=== PATIENT | female | born 1965 | race African-American/Black ===

== ENCOUNTER 2017-05-26 23:20 | Emergency (ER) | payer SELFPAY ==
[2017-05-27] MEDS ORDERED: HYDROCODONE/ACETAMINOPHEN 5-325 MG (6 TAB/ER DISP) PO PRN (00:15)
--- NOTE | 2017-05-27 00:15 | ER Document Report ---
HPI - HPI Patient complains to provider of: right arm pain Pain Level: 2 Context: Patient is a 51-year-old female who comes emergency department for chief complaint of pain in her right arm/orbit area and over her outer arm just past the elbow. She states that she started noticing pain with movement, she states several days of the past and the pain is still there with movement and she became concerned. She denies any injury, chest pain, shortness of breath, fever , swelling. She already takes ibuprofen for her back. She has diabetes and hypertension, is not on a blood thinner. - REPRODUCTIVE LMP: na Past Medical History - General Information source: Patient - Social History Smoking Status: Never Smoker Frequency of alcohol use: None Drug Abuse: None Lives with: Family Family History: Reviewed & Not Pertinent - Past Medical History Cardiac Medical History: Reports: Hx Hypertension Endocrine Medical History: Reports: Hx Diabetes Mellitus Type 2 Psychiatric Medical History: Reports: Hx Depression - Immunizations Hx Diphtheria, Pertussis, Tetanus Vaccination: Yes Vertical Provider Document - CONSTITUTIONAL General Appearance: WD/WN, No Apparent Distress - INFECTION CONTROL TRAVEL OUTSIDE OF THE [place] IN LAST 30 DAYS: No - HEENT HEENT: Atraumatic, Normocephalic - NECK Neck: Normal Inspection - RESPIRATORY Respiratory: Breath Sounds Normal, No Respiratory Distress. negative: Chest Non -Tender - Patient tender over the right lateral pectoralis muscle extending into the axillary area, reproducible with raising the arm over her head. No erythema, swelling, crepitus, normal chest exam otherwise. O2 Sat by Pulse Oximetry: 97 - CARDIOVASCULAR Cardiovascular: Regular Rate, Regular Rhythm - GI/ABDOMEN Gastrointestinal: Abdomen Soft, Abdomen Non-Tender - BACK Back: Normal Inspection - MUSCULOSKELETAL/EXTREMETIES Musculoskeletal/Extremeties: Tender - Patient's tender over the lateral epicondyle, pain with straightening and rotation of the arm, no swelling, erythema, full range of motion of the elbow, normal distal neurovascular exam and hand exam. Normal upper arm exam as well. Course - Re-evaluation Re-evalutation: Patient asymptomatic unless she has movement, movement causes pain, these movements are specific, palpation reproduces pain. Consistent with right lateral pectoralis muscle pain, lateral epicondylitis. No shortness of breath, chest pain, nausea or vomiting, or concerning symptoms suggesting ACS, infection , or neurological abnormality. Discussed with patient, discussed treatment, follow-up, return precautions. Patient states satisfaction and agreement. - Vital Signs Vital signs: Temp Pulse Resp BP Pulse Ox 97.8 F 78 182/92 H 97 05/26/17 23:33 05/26/17 23:33 05/26/17 23:33 05/26/17 23:33 Discharge - Discharge Clinical Impression: Right arm pain Strain of right pectoralis muscle Qualifiers: Encounter type: initial encounter Qualified Code(s): S29.011A - Strain of muscle and tendon of front wall of thorax, initial encounter Disposition: HOME, SELF-CARE Additional Instructions: Exam is consistent with strain of the right pectoralis muscle and also lateral epicondylitis. Continue ibuprofen, apply heat to your chest/armpit area, apply ice to the elbow area, take the muscle relaxer as prescribed, apply the patches over the painful areas if needed. Rest and avoid lifting/twisting. This should resolve with time. Follow-up with primary care. Return for any concerning or worsening symptoms including difficulty breathing, pain in your chest, swelling or redness of the areas, or any other concerning symptoms. Prescriptions: Lidocaine [Lidoderm 5% (700 mg) Transdermal Patch] 1 patch TP DAILY #30 adh..patch Methocarbamol [Robaxin 500 mg Tablet] 500 mg PO QID PRN #20 tablet PRN Reason:
[2017-05-27 00:43] VITALS: BP 169/87
== END 2017-05-27 00:42 | disposition home or self-care (01) ==
LOC: ER 23:20
DX: M79.601 Pain in right arm (principal); S29.011A Strain of muscle and tendon of front wall of thorax, initial encounter; X58.XXXA Exposure to other specified factors, initial encounter; E11.9 Type 2 diabetes mellitus without complications; I10 Essential (primary) hypertension
CPT/HCPCS: 99283

== ENCOUNTER 2017-07-24 15:49 | Emergency (ER) | payer SELFPAY ==
[2017-07-24] MEDS ORDERED: CLONIDINE HCL 0.1 MG TABLET PO ONE (16:11)
[2017-07-24] MEDS ORDERED: ASPIRIN 81 MG TABLET, CHEWABLE PO ONE (16:11)
--- NOTE | 2017-07-24 16:12 | ER Document Report ---
ED Medical Screen (RME) - General Chief Complaint: High blood pressure/ chest tightness Stated Complaint: BLOOD PRESSURE ISSUE Time Seen by Provider: 07/24/17 16:11 TRAVEL OUTSIDE OF THE [place] IN LAST 30 DAYS: No - HPI Notes: 07/24/17 16:12 Coming in for elevated blood pressure and chest tightness. - Related Data Allergies/Adverse Reactions: No Known Allergies Allergy (Verified 03/06/13 16:02) Past Medical History - Past Medical History Cardiac Medical History: Reports: Hx Hypertension Endocrine Medical History: Reports: Hx Diabetes Mellitus Type 2 Psychiatric Medical History: Reports: Hx Depression - Immunizations Hx Diphtheria, Pertussis, Tetanus Vaccination: Yes Review of Systems - Review of Systems Constitutional: Other - Elevated blood pressure chest tightness Physical Exam - Vital signs Vitals: Temp Pulse Resp BP Pulse Ox 98.1 F 58 L 18 216/111 H 97 07/24/17 15:53 07/24/17 15:53 07/24/17 15:53 07/24/17 15:53 07/24/17 15:53 - Respiratory Respiratory status: No respiratory distress Chest status: Nontender Breath sounds: Normal Chest palpation: Normal Course - Vital Signs Vital signs: Temp Pulse Resp BP Pulse Ox 98.1 F 58 L 18 216/111 H 97 07/24/17 15:53 07/24/17 15:53 07/24/17 15:53 07/24/17 15:53 07/24/17 15:53
[2017-07-24 16:38] LABS: ABSOLUTE LYMPHOCYTES (AUTO) 1.8 10^3/uL (0.5-4.7); ABSOLUTE MONOCYTES (AUTO) 0.2 10^3/uL (0.1-1.4); ABSOLUTE NEUT (AUTO) 1.3 10^3/uL (1.7-8.2); BASOPHILS % (AUTO) 0.3 % (0-2); EOSINOPHILS % (AUTO) 0.5 % (0-6); HEMATOCRIT 39.9 % (36.0-47.0); HEMOGLOBIN 13.6 g/dL (12.0-15.5); LYMPHOCYTES % (AUTO) 53.8 % (13-45); MEAN CORPUSCULAR HEMOGLOBIN 27.6 pg (27.0-33.4); MEAN CORPUSCULAR VOLUME 81 fl (80-97); PLATELET COUNT 163 10^3/uL (150-450); RED BLOOD COUNT 4.91 10^6/uL (3.72-5.28); RED CELL DISTRIBUTION WIDTH 13.6 % (11.5-14.0); SEGMENTED NEUTROPHILS % (AUTO) 38.4 % (42-78); TOTAL CELLS COUNTED % (AUTO) 100 %; WHITE BLOOD COUNT 3.4 10^3/uL (4.0-10.5)
--- NOTE | 2017-07-24 16:50 | RADIOLOGY REPORT (SQ) ---
EXAM DESCRIPTION: CHEST 2 VIEWS COMPLETED DATE/TIME: 07/24/2017 4:35 pm REASON FOR STUDY: cp COMPARISON: None. EXAM PARAMETERS: NUMBER OF VIEWS: two views TECHNIQUE: Digital Frontal and Lateral radiographic views of the chest acquired. RADIATION DOSE: NA LIMITATIONS: none FINDINGS: LUNGS AND PLEURA: No opacities, masses or pneumothorax. No pleural effusion. MEDIASTINUM AND HILAR STRUCTURES: No masses or contour abnormalities. HEART AND VASCULAR STRUCTURES: Heart normal size. No evidence for failure. BONES: No acute findings. HARDWARE: None in the chest. OTHER: No other significant finding. IMPRESSION: NO ACUTE RADIOGRAPHIC FINDING IN THE CHEST. TECHNICAL DOCUMENTATION: JOB ID: [id number] [employer]- All Rights Reserved Reading location - IP/workstation name: [facility], [facility]
--- NOTE | 2017-07-24 16:58 | ER Document Report ---
ED Blood Pressure Problem - General Chief Complaint: High blood pressure/ chest tightness Stated Complaint: BLOOD PRESSURE ISSUE Time Seen by Provider: 07/24/17 16:11 Mode of Arrival: Ambulatory Information source: Patient TRAVEL OUTSIDE OF THE [place] IN LAST 30 DAYS: No - HPI Patient complains to provider of: High blood pressure Onset: This morning Onset/Duration: Gradual Quality of pain: Other - VAGUE "TIGHTNESS" IN CHEST Severity: Mild Problem is: New problem Pt currently taking medication for problem: Yes - SAYS SHE'S BEEN COMPLIANT Associated symptoms: Chest pain - VERY SLIGHT, Headache, Other - DISCOMFORT IN NOSE. denies: Lightheaded, Nausea Similar symptoms previously: Yes Recently seen / treated by doctor: No - Related Data Allergies/Adverse Reactions: No Known Allergies Allergy (Verified 07/24/17 16:14) Past Medical History - General Information source: Patient - Social History Smoking Status: Never Smoker Cigarette use (# per day): No Chew tobacco use (# tins/day): No Frequency of alcohol use: None Drug Abuse: None Lives with: Spouse/Significant other Family History: Reviewed & Not Pertinent Patient has suicidal ideation: No Patient has homicidal ideation: No - Past Medical History Cardiac Medical History: Reports: Hx Hypertension Pulmonary Medical History: Reports: None EENT Medical History: Reports: None Neurological Medical History: Reports: None Endocrine Medical History: Reports: Hx Diabetes Mellitus Type 2 Renal/ Medical History: Reports: None. Denies: Hx Peritoneal Dialysis Malignancy Medical History: Reports: None GI Medical History: Reports: None Musculoskeltal Medical History: Reports None Psychiatric Medical History: Reports: Hx Depression Past Surgical History: Reports: Hx Cholecystectomy, Hx Tubal Ligation - Immunizations Hx Diphtheria, Pertussis, Tetanus Vaccination: Yes Review of Systems - Review of Systems Constitutional: No symptoms reported EENT: See HPI Cardiovascular: See HPI Respiratory: No symptoms reported Gastrointestinal: No symptoms reported Genitourinary: No symptoms reported Musculoskeletal: No symptoms reported Skin: No symptoms reported Neurological/Psychological: No symptoms reported Physical Exam - Vital signs Vitals: Temp Pulse Resp BP Pulse Ox 98.1 F 58 L 18 216/111 H 97 07/24/17 15:53 07/24/17 15:53 07/24/17 15:53 07/24/17 15:53 07/24/17 15:53 Interpretation: Hypertensive, Bradycardic. No: Tachypneic - General General appearance: Appears well, Alert In distress: None - HEENT Head: Normocephalic Eyes: Normal Conjunctiva: Normal Ears: Normal Nasal: Normal Mouth/Lips: Normal Mucous membranes: Normal Pharynx: Normal Neck: Normal - Respiratory Respiratory status: No respiratory distress Chest status: Nontender Breath sounds: Normal - Cardiovascular Rhythm: Regular Heart sounds: Normal auscultation Murmur: No - Abdominal Inspection: Obese Bowel sounds: Normal - Extremities General upper extremity: Normal inspection General lower extremity: Normal inspection. No: Tender, Edema - Neurological Neuro grossly intact: Yes Cognition: Normal Orientation: AAOx4 - Psychological Associated symptoms: Normal affect, Normal mood - Skin Skin Temperature: Warm Skin Moisture: Dry Skin Color: Normal Skin Turgor: Elastic Course - Vital Signs Vital signs: Temp Pulse Resp BP Pulse Ox 98.1 F 58 L 14 128/71 H 99 07/24/17 15:53 07/24/17 15:53 07/24/17 19:01 07/24/17 19:01 07/24/17 19:01 - Laboratory Result Diagrams: 07/24/17 16:25 07/24/17 16:25 Laboratory results interpreted by me: 07/24/17 07/24/17 16:25 16:25 WBC 3.4 L Seg Neutrophils % 38.4 L Lymphocytes % 53.8 H Absolute Neutrophils 1.3 L Glucose 176 H - EKG Interpretation by Mt EKG shows normal: Sinus rhythm, [place], Intervals, ST-T Waves. abnormal: QRS Complexes Rate: Normal Rhythm: NSR Voltage: Consistant with LVH Discharge - Discharge Clinical Impression: Essential (primary) hypertension Condition: Stable Disposition: HOME, SELF-CARE Instructions: High Blood Pressure, Requiring Treatment ([facility]) Additional Instructions: CONTINUE TAKING YOUR METOPROLOL TWICE A DAY, USUAL. STARTING TOMORROW (SUNDAY), TAKE YOUR LISINOPRIL 20 mg TWICE A DAY, MORNING AND EVENING. FOLLOW UP WITH YOUR PRIMARY CARE PROVIDER, CALL TOMORROW FOR APPOINTMENT. RETURN TO E.R. IF PROBLEMS. Referrals: [facility] [Outside] - Follow up in 3-5 days
[2017-07-24 17:00] LABS: ALANINE AMINOTRANSFERASE 23 U/L (9-52); ALBUMIN 4.2 g/dL (3.5-5.0); ALKALINE PHOSPHATASE 82 U/L (38-126); ANION GAP 10 (5-19); ASPARTATE AMINO TRANSFERASE 14 U/L (14-36); BILIRUBIN,DIRECT 0.2 mg/dL (0.0-0.4); BILIRUBIN,TOTAL 0.3 mg/dL (0.2-1.3); BLOOD UREA NITROGEN 11 mg/dL (7-20); CALCIUM 9.6 mg/dL (8.4-10.2); CARBON DIOXIDE 30 mmol/L (22-30); CHLORIDE 101 mmol/L (98-107); CREATINE KINASE 58 U/L (30-135); GLUCOSE 176 mg/dL (75-110); POTASSIUM 3.9 mmol/L (3.6-5.0); SODIUM 141.4 mmol/L (137-145); TOTAL PROTEIN 7.8 g/dL (6.3-8.2)
[2017-07-24 17:19] LABS: CREATINE KINASE MB < 0.22 ng/mL (<4.55); TROPONIN I < 0.012 ng/mL
--- NOTE | 2017-07-24 19:29 | EKG REPORT ---
SEVERITY:- ABNORMAL ECG - SINUS RHYTHM LEFT VENTRICULAR HYPERTROPHY : Confirmed by: Cecilio Espinosa MD 24-Jul-2017 19:28:30
[2017-07-24 21:38] VITALS: BP 129/79
== END 2017-07-24 21:41 | disposition home or self-care (01) ==
LOC: ER 15:49
DX: I10 Essential (primary) hypertension (principal); R07.9 Chest pain, unspecified; R51 Headache; E11.9 Type 2 diabetes mellitus without complications
CPT/HCPCS: 36415; 71046; 80053; 82550; 82553; 84484; 85025; 93005; 93010; 99284